=== PATIENT | female | born 1970 | race Caucasian/White ===

== ENCOUNTER 2022-02-26 15:35 | Outpatient (CLI) | payer BC | END 2022-02-26 15:36 | disposition home or self-care (01) | LOC: CSHCT 15:35 | PROVIDERS: ATTEND Neurological Surgery | DX: M54.50 Low back pain, unspecified (principal); M47.816 Spondylosis without myelopathy or radiculopathy, lumbar region; Q76.49 Other congenital malformations of spine, not associated with scoliosis; M51.36 Other intervertebral disc degeneration, lumbar region | CPT/HCPCS: 72131 ==

== ENCOUNTER 2022-10-26 12:48 | Emergency (ER) | payer BC ==
[2022-10-26] MEDS ORDERED: Morphine 4 MG/ML VIAL ONE (15:40)
== END 2022-10-26 18:05 | disposition home or self-care (01) ==
LOC: CSHERS 12:48
DX: M48.02 Spinal stenosis, cervical region (principal); E11.9 Type 2 diabetes mellitus without complications
CPT/HCPCS: 72125; 96372; J2270

== ENCOUNTER 2022-11-04 09:50 | Outpatient (CLI) | payer BC | END 2022-11-04 09:51 | disposition home or self-care (01) | LOC: CSHRAD 09:50 | PROVIDERS: ATTEND Neurological Surgery | DX: M54.12 Radiculopathy, cervical region (principal); Z98.890 Other specified postprocedural states | CPT/HCPCS: 72050 ==

== ENCOUNTER 2023-04-07 14:29 | Outpatient (CLI) | payer BC | END 2023-04-07 14:30 | disposition home or self-care (01) | LOC: CSHMRI 14:29 | PROVIDERS: ATTEND Neurological Surgery | DX: R51.9 Headache, unspecified (principal); M54.2 Cervicalgia; Z98.890 Other specified postprocedural states; M47.812 Spondylosis without myelopathy or radiculopathy, cervical region | CPT/HCPCS: 70551; 72141 ==

== ENCOUNTER 2023-05-11 09:38 | Outpatient (CLI) | payer BC | END 2023-05-11 09:39 | disposition home or self-care (01) | LOC: CSHMRI 09:38 | PROVIDERS: ATTEND Neurological Surgery | DX: M54.2 Cervicalgia (principal); M54.42 Lumbago with sciatica, left side; Z98.890 Other specified postprocedural states; M47.816 Spondylosis without myelopathy or radiculopathy, lumbar region | CPT/HCPCS: 72050; 72120; 72148 ==

== ENCOUNTER 2024-08-08 12:08 | Outpatient (CLI) | payer BC | END 2024-08-08 12:09 | disposition home or self-care (01) | LOC: CSHMAMMO 12:08 | PROVIDERS: ATTEND Student in an Organized Health Care Education/Training Program | DX: Z12.31 Encounter for screening mammogram for malignant neoplasm of breast (principal); N63.20 Unspecified lump in the left breast, unspecified quadrant; Z80.3 Family history of malignant neoplasm of breast | CPT/HCPCS: 77063; 77067 ==

== ENCOUNTER 2024-08-28 12:53 | Outpatient (CLI) | payer BC | END 2024-08-28 12:54 | disposition home or self-care (01) | LOC: CSHMAMMO 12:53 | PROVIDERS: ATTEND Student in an Organized Health Care Education/Training Program | DX: N63.21 Unspecified lump in the left breast, upper outer quadrant (principal) | CPT/HCPCS: G0279 ==

== ENCOUNTER → 2024-09-07 | Day surgery (SDC) | payer BC | LOC: CSHULT 12:32 | PROVIDERS: ATTEND Student in an Organized Health Care Education/Training Program | PROC: 0HBU3ZX Excision of Left Breast, Percutaneous Approach, Diagnostic (ICD-10-PCS; principal; 2024-09-07) | DX: D24.2 Benign neoplasm of left breast (principal) | CPT/HCPCS: 19083; 88305 ==